=== PATIENT | male | born 1940 | race African-American/Black ===

== ENCOUNTER 2020-11-24 15:55 | Inpatient (IN) | payer MEDICARE, MEDICAID ==
[~2020-11-24] VITALS: Ht 185.4 cm; Wt 77.1 kg
[2020-11-24 17:08] VITALS: BP 137/54
[2020-11-24] MEDS ORDERED: MAGNESIUM/ALUMINUM HYDROXIDE/SIMETHICONE 30ML UDC PO PRN (18:30)
[2020-11-24] MEDS ORDERED: NA PHOS,M-B/NA PHOS,DI-BA ENEMA 118ML PR PRN (18:30)
[2020-11-24] MEDS ORDERED: NITROGLYCERIN 0.4MG TABLET SL SL PRN (18:30)
[2020-11-24] MEDS ORDERED: CLONIDINE 0.1MG TABLET PO PRN (18:30)
[2020-11-24] MEDS ORDERED: ONDANSETRON HCL 4MG TABLET PO PRN (18:39)
[2020-11-24 18:53] VITALS: BP 137/54
[2020-11-24 20:00] VITALS: BP 134/64
[2020-11-24] MEDS: ALBUTEROL (0.083%) 2.5MG/3ML NEB HHN SCH (21:10)
[2020-11-24] MEDS: DOCUSATE SODIUM 100MG CAPSULE PO SCH (21:15)
[2020-11-24] MEDS: ASCORBIC ACID 500 MG TABLET PO SCH (21:15)
[2020-11-24] MEDS: ATORVASTATIN CALCIUM 40MG TABLET PO SCH (21:15)
[2020-11-24] MEDS: FAMOTIDINE 20MG TABLET PO SCH (21:16)
[2020-11-24] MEDS: LISINOPRIL 20MG TABLET PO SCH (21:33)
[2020-11-24 21:55] LABS: BASOPHILS % 0.3 % (0.0-2.0); EOSINOPHILS % 1.4 % (0.0-5.0); HEMOGLOBIN. 10.3 g/dL (14.0-18.0); LYMPHOCYTES % 17.5 % (20.0-50.0); MEAN CORPUSCULAR HEMOGLOBIN 30.4 pg (28.0-32.0); MEAN CORPUSCULAR VOLUME 88.4 fL (80.0-94.0); MEAN PLATELET VOLUME 8.9 fl (7.4-10.4); MONOCYTES % 5.7 % (2.0-8.0); NEUTROPHILS % 75.1 % (40.0-76.0); PLATELET 264 x1000/uL (130-400); RED BLOOD CELL COUNT 3.39 mill/uL (4.7-6.1); RED CELL DISTRIBUTION WIDTH 13.7 % (11.6-14.6)
[2020-11-24 22:03] LABS: CHLORIDE 109 mEq/L (98-107); INR 1.1; PROTHROMBIN TIME 11.4 sec (9.6-11.0)
[2020-11-25] MEDS: HYDRALAZINE HCL 10MG TABLET PO SCH ×4 (00:46→17:39)
[2020-11-25] MEDS: METOCLOPRAMIDE HCL 10MG TABLET PO SCH ×4 (00:53→17:39)
[2020-11-25] MEDS: ALBUTEROL (0.083%) 2.5MG/3ML NEB HHN SCH ×4 (04:00→19:59)
[2020-11-25 06:45] LABS: BASOPHILS % 0.5 % (0.0-2.0); EOSINOPHILS % 3.3 % (0.0-5.0); HEMATOCRIT. 30.5 % (42.0-52.0); HEMOGLOBIN. 10.3 g/dL (14.0-18.0); LYMPHOCYTES % 18.8 % (20.0-50.0); MEAN CORPUSCULAR HEMOGLOBIN 30.2 pg (28.0-32.0); MEAN PLATELET VOLUME 9.2 fl (7.4-10.4); MONOCYTES % 6.8 % (2.0-8.0); NEUTROPHILS % 70.6 % (40.0-76.0); PLATELET 245 x1000/uL (130-400); RED BLOOD CELL COUNT 3.42 mill/uL (4.7-6.1); RED CELL DISTRIBUTION WIDTH 13.9 % (11.6-14.6)
[2020-11-25 06:54] LABS: CHLORIDE 110 mEq/L (98-107)
[2020-11-25 08:00] VITALS: BP 148/72
[2020-11-25] MEDS: ASPIRIN 81MG TABLET PO SCH (09:16)
[2020-11-25] MEDS: ASCORBIC ACID 500 MG TABLET PO SCH ×2 (09:16→22:10)
[2020-11-25] MEDS: DOCUSATE SODIUM 100MG CAPSULE PO SCH ×2 (09:16→17:38)
[2020-11-25] MEDS: AMLODIPINE 5MG TABLET PO SCH (09:17)
[2020-11-25] MEDS: CLOPIDOGREL 75MG TABLET PO SCH (09:17)
[2020-11-25] MEDS: LISINOPRIL 20MG TABLET PO SCH ×2 (09:17→22:10)
[2020-11-25] MEDS: FAMOTIDINE 20MG TABLET PO SCH ×2 (09:17→22:09)
[2020-11-25] MEDS: ZINC SULFATE 220 MG ( 50 ) CAPSULE PO SCH (09:17)
[2020-11-25] MEDS: ENOXAPARIN 40MG/0.4ML SYR SUBCUT SCH (09:18)
[2020-11-25 14:48] LABS: T4 FREE 1.12 ng/dL (0.76-1.46)
[2020-11-25] MEDS: NYSTATIN POWDER 15GM TOP SCH (17:45)
[2020-11-25 20:00] VITALS: BP 133/69
[2020-11-25] MEDS: ATORVASTATIN CALCIUM 40MG TABLET PO SCH (22:10)
[2020-11-26] MEDS: ALBUTEROL (0.083%) 2.5MG/3ML NEB HHN SCH ×5 (00:29→19:49)
[2020-11-26] MEDS: METOCLOPRAMIDE HCL 10MG TABLET PO SCH ×4 (01:12→17:09)
[2020-11-26] MEDS: HYDRALAZINE HCL 10MG TABLET PO SCH ×4 (01:13→17:09)
[2020-11-26 06:44] LABS: CHLORIDE 107 mEq/L (98-107)
[2020-11-26 06:51] LABS: TOTAL IRON BINDING CAPACITY 251 ug/dL (250-450)
[2020-11-26 06:54] LABS: BASOPHILS % 0.6 % (0.0-2.0); EOSINOPHILS % 2.6 % (0.0-5.0); HEMATOCRIT. 33.7 % (42.0-52.0); HEMOGLOBIN. 11.2 g/dL (14.0-18.0); LYMPHOCYTES % 19.3 % (20.0-50.0); MEAN CORPUSCULAR HEMOGLOBIN 30.1 pg (28.0-32.0); MEAN CORPUSCULAR VOLUME 90.1 fL (80.0-94.0); MEAN PLATELET VOLUME 8.8 fl (7.4-10.4); MONOCYTES % 7.4 % (2.0-8.0); NEUTROPHILS % 70.1 % (40.0-76.0); PLATELET 319 x1000/uL (130-400); RED BLOOD CELL COUNT 3.74 mill/uL (4.7-6.1); RED CELL DISTRIBUTION WIDTH 13.9 % (11.6-14.6)
[2020-11-26 07:04] LABS: PROSTRATE SPECIFIC AG TOTAL 1.97 ng/mL (0.0-4.0)
[2020-11-26 07:05] LABS: FOLIC ACID (FOLATE) SERUM 9.9 ng/mL (>5.38)
[2020-11-26 07:57] VITALS: BP 157/73
[2020-11-26] MEDS: CLOPIDOGREL 75MG TABLET PO SCH (10:03)
[2020-11-26] MEDS: LISINOPRIL 20MG TABLET PO SCH ×2 (10:03→21:35)
[2020-11-26] MEDS: ZINC SULFATE 220 MG ( 50 ) CAPSULE PO SCH (10:03)
[2020-11-26] MEDS: FAMOTIDINE 20MG TABLET PO SCH ×2 (10:04→21:35)
[2020-11-26] MEDS: ASPIRIN 81MG TABLET PO SCH (10:04)
[2020-11-26] MEDS: AMLODIPINE 5MG TABLET PO SCH (10:04)
[2020-11-26] MEDS: DOCUSATE SODIUM 100MG CAPSULE PO SCH ×2 (10:04→17:09)
[2020-11-26] MEDS: ENOXAPARIN 40MG/0.4ML SYR SUBCUT SCH (10:05)
[2020-11-26] MEDS: NYSTATIN POWDER 15GM TOP SCH ×3 (10:05→17:10)
[2020-11-26 12:21] VITALS: BP 139/71
[2020-11-26] MEDS: ASCORBIC ACID 500 MG TABLET PO SCH ×2 (12:25→21:35)
[2020-11-26] MEDS ORDERED: FERROUS SULFATE 325MG TABLET PO SCH (17:00)
[2020-11-26] MEDS: FERROUS SULFATE 325MG TABLET PO SCH (17:09)
[2020-11-26 20:00] VITALS: BP 132/72
[2020-11-26] MEDS: ACETAMINOPHEN 325MG TABLET PO PRN (21:35)
[2020-11-26] MEDS: ATORVASTATIN CALCIUM 40MG TABLET PO SCH (21:35)
[2020-11-27] MEDS: METOCLOPRAMIDE HCL 10MG TABLET PO SCH ×4 (01:10→18:02)
[2020-11-27] MEDS: HYDRALAZINE HCL 10MG TABLET PO SCH ×4 (01:10→18:02)
[2020-11-27 08:14] VITALS: BP 140/67
[2020-11-27] MEDS: ALBUTEROL (0.083%) 2.5MG/3ML NEB HHN SCH ×3 (08:15→21:00)
[2020-11-27] MEDS ORDERED: ASCORBIC ACID 500 MG TABLET PO SCH (09:00)
[2020-11-27] MEDS: ASCORBIC ACID 500 MG TABLET PEG SCH (09:43)
[2020-11-27] MEDS: FERROUS SULFATE 325MG TABLET PO SCH (09:43)
[2020-11-27] MEDS: FAMOTIDINE 20MG TABLET PO SCH ×2 (09:43→20:39)
[2020-11-27] MEDS: DOCUSATE SODIUM 100MG CAPSULE PO SCH ×2 (09:43→18:02)
[2020-11-27] MEDS: ASPIRIN 81MG TABLET PO SCH (09:43)
[2020-11-27] MEDS: ZINC SULFATE 220 MG ( 50 ) CAPSULE PO SCH (09:43)
[2020-11-27] MEDS: ENOXAPARIN 40MG/0.4ML SYR SUBCUT SCH (09:44)
[2020-11-27] MEDS: AMLODIPINE 5MG TABLET PO SCH (09:44)
[2020-11-27] MEDS: CLOPIDOGREL 75MG TABLET PO SCH (09:44)
[2020-11-27] MEDS: LISINOPRIL 20MG TABLET PO SCH ×2 (09:45→20:39)
[2020-11-27] MEDS: NYSTATIN POWDER 15GM TOP SCH ×3 (09:56→18:19)
[2020-11-27] MEDS: FERROUS SULFATE 300MG/5ML UDC PO SCH ×2 (15:32→18:02)
[2020-11-27 20:00] VITALS: BP 143/68
[2020-11-27] MEDS: ATORVASTATIN CALCIUM 40MG TABLET PO SCH (20:39)
[2020-11-28] MEDS: METOCLOPRAMIDE HCL 10MG TABLET PO SCH ×5 (01:27→23:37)
[2020-11-28] MEDS: HYDRALAZINE HCL 10MG TABLET PO SCH ×5 (01:27→23:37)
[2020-11-28] MEDS: ALBUTEROL (0.083%) 2.5MG/3ML NEB HHN SCH ×3 (08:17→21:16)
[2020-11-28 08:30] VITALS: BP 128/60
[2020-11-28] MEDS: FERROUS SULFATE 300MG/5ML UDC PO SCH ×3 (08:31→17:15)
[2020-11-28] MEDS: LISINOPRIL 20MG TABLET PO SCH ×2 (08:31→22:33)
[2020-11-28] MEDS: DOCUSATE SODIUM 100MG CAPSULE PO SCH ×2 (08:31→17:14)
[2020-11-28] MEDS: ASPIRIN 81MG TABLET PO SCH (08:31)
[2020-11-28] MEDS: AMLODIPINE 5MG TABLET PO SCH (08:31)
[2020-11-28] MEDS: ENOXAPARIN 40MG/0.4ML SYR SUBCUT SCH (08:32)
[2020-11-28] MEDS: CLOPIDOGREL 75MG TABLET PO SCH (08:32)
[2020-11-28] MEDS: ASCORBIC ACID 500 MG TABLET PEG SCH (08:32)
[2020-11-28] MEDS: FAMOTIDINE 20MG TABLET PO SCH ×2 (08:32→22:32)
[2020-11-28] MEDS: ZINC SULFATE 220 MG ( 50 ) CAPSULE PO SCH (08:32)
[2020-11-28] MEDS: NYSTATIN POWDER 15GM TOP SCH ×3 (08:44→17:14)
[2020-11-28] MEDS: ACETAMINOPHEN 325MG TABLET PO PRN (12:05)
[2020-11-28 20:00] VITALS: BP 152/77
[2020-11-28] MEDS: ATORVASTATIN CALCIUM 40MG TABLET PO SCH (22:33)
[2020-11-28] MEDS: GUAIFENESIN 200MG/10ML SUGAR FREE UDC PO PRN (23:37)
[2020-11-29] MEDS: ACETAMINOPHEN 650MG/20.3ML UDC PO PRN ×2 (02:28→23:42)
[2020-11-29] MEDS: METOCLOPRAMIDE HCL 10MG TABLET PO SCH ×4 (05:54→23:42)
[2020-11-29] MEDS: HYDRALAZINE HCL 10MG TABLET PO SCH ×4 (05:56→23:42)
[2020-11-29] MEDS: ALBUTEROL (0.083%) 2.5MG/3ML NEB HHN SCH ×4 (07:33→21:08)
[2020-11-29] MEDS: ENOXAPARIN 40MG/0.4ML SYR SUBCUT SCH (09:50)
[2020-11-29] MEDS: FERROUS SULFATE 300MG/5ML UDC PO SCH ×3 (09:50→17:39)
[2020-11-29] MEDS: AMLODIPINE 5MG TABLET PO SCH (09:51)
[2020-11-29] MEDS: DOCUSATE SODIUM 100MG CAPSULE PO SCH ×2 (09:51→17:40)
[2020-11-29] MEDS: ASPIRIN 81MG TABLET PO SCH (09:51)
[2020-11-29] MEDS: CLOPIDOGREL 75MG TABLET PO SCH (09:51)
[2020-11-29] MEDS: ZINC SULFATE 220 MG ( 50 ) CAPSULE PO SCH (09:51)
[2020-11-29] MEDS: LISINOPRIL 20MG TABLET PO SCH ×2 (09:51→22:01)
[2020-11-29] MEDS: ASCORBIC ACID 500 MG TABLET PEG SCH (09:51)
[2020-11-29] MEDS: NYSTATIN POWDER 15GM TOP SCH ×3 (09:52→17:40)
[2020-11-29] MEDS: FAMOTIDINE 20MG TABLET PO SCH ×2 (11:59→21:47)
[2020-11-29 20:00] VITALS: BP 130/71
[2020-11-29 21:10] LABS: PROTHROMBIN TIME 10.5 sec (9.6-11.0)
[2020-11-29] MEDS: ATORVASTATIN CALCIUM 40MG TABLET PO SCH (21:47)
[2020-11-30] MEDS: METOCLOPRAMIDE HCL 10MG TABLET PO SCH ×3 (05:24→18:02)
[2020-11-30] MEDS: HYDRALAZINE HCL 10MG TABLET PO SCH ×4 (05:27→23:56)
[2020-11-30 07:44] VITALS: BP 110/65
[2020-11-30] MEDS: ALBUTEROL (0.083%) 2.5MG/3ML NEB HHN SCH ×2 (09:21→19:55)
[2020-11-30] MEDS: ASPIRIN 81MG TABLET PO SCH (11:01)
[2020-11-30] MEDS: ASCORBIC ACID 500 MG TABLET PEG SCH (11:01)
[2020-11-30] MEDS: DOCUSATE SODIUM 100MG CAPSULE PO SCH ×2 (11:02→18:00)
[2020-11-30] MEDS: FERROUS SULFATE 300MG/5ML UDC PO SCH ×3 (11:03→18:01)
[2020-11-30] MEDS: AMLODIPINE 5MG TABLET PO SCH (11:04)
[2020-11-30] MEDS: ZINC SULFATE 220 MG ( 50 ) CAPSULE PO SCH (11:04)
[2020-11-30] MEDS: CLOPIDOGREL 75MG TABLET PO SCH (11:05)
[2020-11-30] MEDS: LISINOPRIL 20MG TABLET PO SCH ×2 (11:06→21:00)
[2020-11-30] MEDS: ENOXAPARIN 40MG/0.4ML SYR SUBCUT SCH (11:07)
[2020-11-30] MEDS: NYSTATIN POWDER 15GM TOP SCH ×3 (11:09→18:01)
[2020-11-30] MEDS: FAMOTIDINE 20MG TABLET PO SCH ×2 (11:15→21:46)
[2020-11-30 12:34] LABS: BASOPHILS % 0.8 % (0.0-2.0); EOSINOPHILS % 2.5 % (0.0-5.0); HEMATOCRIT. 29.5 % (42.0-52.0); HEMOGLOBIN. 9.9 g/dL (14.0-18.0); LYMPHOCYTES % 19.8 % (20.0-50.0); MEAN CORPUSCULAR HEMOGLOBIN 30.1 pg (28.0-32.0); MEAN CORPUSCULAR VOLUME 89.6 fL (80.0-94.0); MONOCYTES % 7.7 % (2.0-8.0); NEUTROPHILS % 69.2 % (40.0-76.0); PLATELET 373 x1000/uL (130-400); RED CELL DISTRIBUTION WIDTH 13.7 % (11.6-14.6)
[2020-11-30 20:00] VITALS: BP 116/59
[2020-11-30] MEDS: ACETAMINOPHEN 650MG/20.3ML UDC PO PRN (21:45)
[2020-11-30] MEDS: ATORVASTATIN CALCIUM 40MG TABLET PO SCH (21:45)
[2020-12-01] MEDS: METOCLOPRAMIDE HCL 10MG TABLET PO SCH ×4 (00:42→17:44)
[2020-12-01] MEDS: HYDRALAZINE HCL 10MG TABLET PO SCH ×4 (05:15→23:45)
[2020-12-01 05:21] LABS: BASOPHILS % 0.9 % (0.0-2.0); EOSINOPHILS % 2.6 % (0.0-5.0); HEMATOCRIT. 24.8 % (42.0-52.0); HEMOGLOBIN. 8.5 g/dL (14.0-18.0); LYMPHOCYTES % 21.7 % (20.0-50.0); MEAN CORPUSCULAR HEMOGLOBIN 30.6 pg (28.0-32.0); MEAN CORPUSCULAR VOLUME 89.8 fL (80.0-94.0); MEAN PLATELET VOLUME 8.3 fl (7.4-10.4); MONOCYTES % 6.4 % (2.0-8.0); NEUTROPHILS % 68.4 % (40.0-76.0); PLATELET 352 x1000/uL (130-400); RED BLOOD CELL COUNT 2.76 mill/uL (4.7-6.1); RED CELL DISTRIBUTION WIDTH 13.4 % (11.6-14.6)
[2020-12-01 08:43] VITALS: BP 136/63
[2020-12-01] MEDS: ALBUTEROL (0.083%) 2.5MG/3ML NEB HHN SCH ×3 (09:01→20:00)
[2020-12-01] MEDS: FAMOTIDINE 20MG TABLET PO SCH ×2 (09:29→21:37)
[2020-12-01] MEDS: ENOXAPARIN 40MG/0.4ML SYR SUBCUT SCH (09:29)
[2020-12-01] MEDS: DOCUSATE SODIUM 100MG CAPSULE PO SCH ×2 (09:29→17:44)
[2020-12-01] MEDS: FERROUS SULFATE 300MG/5ML UDC PO SCH ×3 (09:29→17:44)
[2020-12-01] MEDS: ASPIRIN 81MG TABLET PO SCH (09:30)
[2020-12-01] MEDS: ASCORBIC ACID 500 MG TABLET PEG SCH (09:30)
[2020-12-01] MEDS: AMLODIPINE 5MG TABLET PO SCH (09:30)
[2020-12-01] MEDS: ZINC SULFATE 220 MG ( 50 ) CAPSULE PO SCH (09:30)
[2020-12-01] MEDS: LISINOPRIL 20MG TABLET PO SCH ×2 (09:31→21:37)
[2020-12-01] MEDS: CLOPIDOGREL 75MG TABLET PO SCH (09:32)
[2020-12-01] MEDS: NYSTATIN POWDER 15GM TOP SCH ×3 (12:54→17:44)
[2020-12-01 20:00] VITALS: BP 136/69
[2020-12-01] MEDS: ACETAMINOPHEN 650MG/20.3ML UDC PO PRN (21:36)
[2020-12-01] MEDS: ATORVASTATIN CALCIUM 40MG TABLET PO SCH (21:37)
[2020-12-02] MEDS: METOCLOPRAMIDE HCL 10MG TABLET PO SCH ×4 (00:28→17:26)
[2020-12-02] MEDS: HYDRALAZINE HCL 10MG TABLET PO SCH ×3 (05:30→17:26)
[2020-12-02 06:57] LABS: BASOPHILS % 0.8 % (0.0-2.0); EOSINOPHILS % 2.5 % (0.0-5.0); HEMATOCRIT. 24.9 % (42.0-52.0); HEMOGLOBIN. 8.5 g/dL (14.0-18.0); LYMPHOCYTES % 20.4 % (20.0-50.0); MEAN CORPUSCULAR HEMOGLOBIN 30.3 pg (28.0-32.0); MEAN CORPUSCULAR VOLUME 88.7 fL (80.0-94.0); MEAN PLATELET VOLUME 8.9 fl (7.4-10.4); MONOCYTES % 8.5 % (2.0-8.0); NEUTROPHILS % 67.8 % (40.0-76.0); PLATELET 386 x1000/uL (130-400); RED BLOOD CELL COUNT 2.81 mill/uL (4.7-6.1); RED CELL DISTRIBUTION WIDTH 13.1 % (11.6-14.6)
[2020-12-02] MEDS: ALBUTEROL (0.083%) 2.5MG/3ML NEB HHN SCH ×3 (08:00→21:19)
[2020-12-02 08:05] VITALS: BP 116/68
[2020-12-02] MEDS: FERROUS SULFATE 300MG/5ML UDC PO SCH ×3 (08:52→17:25)
[2020-12-02] MEDS: ZINC SULFATE 220 MG ( 50 ) CAPSULE PO SCH (08:53)
[2020-12-02] MEDS: ENOXAPARIN 40MG/0.4ML SYR SUBCUT SCH (08:53)
[2020-12-02] MEDS: AMLODIPINE 5MG TABLET PO SCH (08:53)
[2020-12-02] MEDS: DOCUSATE SODIUM 100MG CAPSULE PO SCH ×2 (08:53→17:25)
[2020-12-02] MEDS: NYSTATIN POWDER 15GM TOP SCH ×3 (08:54→17:26)
[2020-12-02] MEDS: CLOPIDOGREL 75MG TABLET PO SCH (08:54)
[2020-12-02] MEDS: LISINOPRIL 20MG TABLET PO SCH ×2 (08:54→21:57)
[2020-12-02] MEDS: ASCORBIC ACID 500 MG TABLET PEG SCH (08:54)
[2020-12-02] MEDS: ASPIRIN 81MG TABLET PO SCH (08:54)
[2020-12-02] MEDS: FAMOTIDINE 20MG TABLET PO SCH ×2 (08:54→21:57)
[2020-12-02 20:00] VITALS: BP 138/61
[2020-12-02 21:53] LABS: CLARITY URINE CLEAR (CLEAR); COLOR URINE YELLOW (YELLOW); KETONES URINE NEGATIVE (NEGATIVE); LEUKOCYTE ESTERASE URINE NEGATIVE (NEGATIVE); NITRITE URINE NEGATIVE (NEGATIVE); OCCULT BLOOD URINE NEGATIVE (NEGATIVE); PROTEIN URINE NEGATIVE (NEGATIVE); SPECIFIC GRAVITY URINE 1.016 (1.005-1.030)
[2020-12-02] MEDS: ATORVASTATIN CALCIUM 40MG TABLET PO SCH (21:57)
[2020-12-02] MEDS: ACETAMINOPHEN 650MG/20.3ML UDC PO PRN (22:02)
[2020-12-03] MEDS: METOCLOPRAMIDE HCL 10MG TABLET PO SCH ×4 (00:19→17:10)
[2020-12-03] MEDS: HYDRALAZINE HCL 10MG TABLET PO SCH ×4 (00:19→17:13)
[2020-12-03] MEDS: ALBUTEROL (0.083%) 2.5MG/3ML NEB HHN SCH ×3 (07:13→20:19)
[2020-12-03 07:51] VITALS: BP 132/61
[2020-12-03] MEDS: BISACODYL 5MG TABLET PO PRN (08:17)
[2020-12-03] MEDS: DOCUSATE SODIUM 100MG CAPSULE PO SCH ×2 (08:17→17:10)
[2020-12-03] MEDS: CLOPIDOGREL 75MG TABLET PO SCH (08:17)
[2020-12-03] MEDS: ASPIRIN 81MG TABLET PO SCH (08:17)
[2020-12-03] MEDS: FERROUS SULFATE 300MG/5ML UDC PO SCH ×2 (08:17→12:09)
[2020-12-03] MEDS: ZINC SULFATE 220 MG ( 50 ) CAPSULE PO SCH (08:17)
[2020-12-03] MEDS: FAMOTIDINE 20MG TABLET PO SCH ×2 (08:17→21:41)
[2020-12-03] MEDS: AMLODIPINE 5MG TABLET PO SCH (08:18)
[2020-12-03] MEDS: LISINOPRIL 20MG TABLET PO SCH ×2 (08:18→21:42)
[2020-12-03] MEDS: ASCORBIC ACID 500 MG TABLET PEG SCH (08:18)
[2020-12-03] MEDS: ENOXAPARIN 40MG/0.4ML SYR SUBCUT SCH (08:19)
[2020-12-03] MEDS: NYSTATIN POWDER 15GM TOP SCH ×3 (08:39→17:00)
[2020-12-03 10:19] LABS: BASOPHILS % 0.7 % (0.0-2.0); EOSINOPHILS % 2.2 % (0.0-5.0); HEMATOCRIT. 24.4 % (42.0-52.0); HEMOGLOBIN. 8.1 g/dL (14.0-18.0); LYMPHOCYTES % 20.3 % (20.0-50.0); MEAN CORPUSCULAR HEMOGLOBIN 30.1 pg (28.0-32.0); MEAN PLATELET VOLUME 8.9 fl (7.4-10.4); MONOCYTES % 10.3 % (2.0-8.0); NEUTROPHILS % 66.5 % (40.0-76.0); PLATELET 396 x1000/uL (130-400); RED BLOOD CELL COUNT 2.71 mill/uL (4.7-6.1); RED CELL DISTRIBUTION WIDTH 13.4 % (11.6-14.6)
[2020-12-03] MEDS ORDERED: IRON SUCROSE COMPLEX 100 MG in SODIUM CHLORIDE 0.9% 100 ML IV SCH (15:00)
[2020-12-03] MEDS: SERTRALINE HCL 25MG TABLET PO SCH (17:11)
[2020-12-03 20:00] VITALS: BP 156/65
[2020-12-03] MEDS: ATORVASTATIN CALCIUM 40MG TABLET PO SCH (21:41)
[2020-12-03] MEDS: IRON SUCROSE COMPLEX 100 MG in SODIUM CHLORIDE 0.9% 100 ML IV SCH (21:55)
[2020-12-04] MEDS: METOCLOPRAMIDE HCL 10MG TABLET PO SCH ×4 (00:06→17:24)
[2020-12-04] MEDS: HYDRALAZINE HCL 10MG TABLET PO SCH ×4 (00:07→17:24)
[2020-12-04] MEDS: ZINC SULFATE 220 MG ( 50 ) CAPSULE PO SCH (08:09)
[2020-12-04] MEDS: AMLODIPINE 5MG TABLET PO SCH (08:09)
[2020-12-04] MEDS: ASPIRIN 81MG TABLET PO SCH (08:10)
[2020-12-04] MEDS: ASCORBIC ACID 500 MG TABLET PEG SCH (08:10)
[2020-12-04] MEDS: ENOXAPARIN 40MG/0.4ML SYR SUBCUT SCH (08:10)
[2020-12-04] MEDS: CLOPIDOGREL 75MG TABLET PO SCH (08:10)
[2020-12-04] MEDS: FAMOTIDINE 20MG TABLET PO SCH ×2 (08:10→21:30)
[2020-12-04] MEDS: SERTRALINE HCL 25MG TABLET PO SCH (08:10)
[2020-12-04] MEDS: DOCUSATE SODIUM 100MG CAPSULE PO SCH ×2 (08:10→17:23)
[2020-12-04] MEDS: LISINOPRIL 20MG TABLET PO SCH ×2 (08:10→21:30)
[2020-12-04] MEDS: NYSTATIN POWDER 15GM TOP SCH ×2 (08:11→17:24)
[2020-12-04 08:30] VITALS: BP 128/62
[2020-12-04] MEDS: ALBUTEROL (0.083%) 2.5MG/3ML NEB HHN SCH ×3 (09:49→20:30)
[2020-12-04] MEDS: ACETAMINOPHEN 650MG/20.3ML UDC PO PRN ×2 (11:56→18:54)
[2020-12-04] MEDS: AZITHROMYCIN 500 MG TABLET PO SCH (11:56)
[2020-12-04 15:10] LABS: 25-HYDROXY VITAMIN D3 29 ng/mL (.)
[2020-12-04] MEDS: IRON SUCROSE COMPLEX 100 MG in SODIUM CHLORIDE 0.9% 100 ML IV SCH (19:00)
[2020-12-04 20:00] VITALS: BP 108/45
[2020-12-04] MEDS: ATORVASTATIN CALCIUM 40MG TABLET PO SCH (21:30)
[2020-12-04] MEDS: GUAIFENESIN 200MG/10ML SUGAR FREE UDC PO PRN (22:18)
[2020-12-05] MEDS: METOCLOPRAMIDE HCL 10MG TABLET PO SCH ×4 (01:29→17:19)
[2020-12-05] MEDS: HYDRALAZINE HCL 10MG TABLET PO SCH ×4 (01:30→17:23)
[2020-12-05 07:46] VITALS: BP 115/56
[2020-12-05] MEDS: ALBUTEROL (0.083%) 2.5MG/3ML NEB HHN SCH ×3 (07:48→21:00)
[2020-12-05] MEDS: NYSTATIN POWDER 15GM TOP SCH ×3 (09:00→17:21)
[2020-12-05] MEDS: CLOPIDOGREL 75MG TABLET PO SCH (09:05)
[2020-12-05] MEDS: LISINOPRIL 20MG TABLET PO SCH ×2 (09:05→20:59)
[2020-12-05] MEDS: SERTRALINE HCL 25MG TABLET PO SCH (09:05)
[2020-12-05] MEDS: ASCORBIC ACID 500 MG TABLET PEG SCH (09:06)
[2020-12-05] MEDS: AMLODIPINE 5MG TABLET PO SCH (09:06)
[2020-12-05] MEDS: FAMOTIDINE 20MG TABLET PO SCH ×2 (09:09→20:59)
[2020-12-05] MEDS: DOCUSATE SODIUM 100MG CAPSULE PO SCH ×2 (09:09→17:19)
[2020-12-05] MEDS: ASPIRIN 81MG TABLET PO SCH (09:09)
[2020-12-05] MEDS: ENOXAPARIN 40MG/0.4ML SYR SUBCUT SCH (09:09)
[2020-12-05] MEDS: ZINC SULFATE 220 MG ( 50 ) CAPSULE PO SCH (09:09)
[2020-12-05] MEDS: AZITHROMYCIN 500 MG TABLET PO SCH (12:29)
[2020-12-05] MEDS: BISACODYL 5MG TABLET PO PRN (12:30)
[2020-12-05] MEDS: ACETAMINOPHEN 650MG/20.3ML UDC PO PRN ×2 (14:07→18:54)
[2020-12-05] MEDS ORDERED: ERGOCALCIFEROL 50000UNITS CAPSULE PO SCH (18:00)
[2020-12-05] MEDS: ATORVASTATIN CALCIUM 40MG TABLET PO SCH (20:59)
[2020-12-05 21:09] VITALS: BP 140/65
[2020-12-06] MEDS: HYDRALAZINE HCL 10MG TABLET PO SCH ×4 (00:11→17:21)
[2020-12-06] MEDS: METOCLOPRAMIDE HCL 10MG TABLET PO SCH ×4 (00:11→17:20)
[2020-12-06] MEDS: ALBUTEROL (0.083%) 2.5MG/3ML NEB HHN SCH ×4 (00:56→21:45)
[2020-12-06] MEDS: ACETAMINOPHEN 650MG/20.3ML UDC PO PRN (02:36)
[2020-12-06 07:34] VITALS: BP 135/58
[2020-12-06 07:59] LABS: EOSINOPHILS % 2.4 % (0.0-5.0); HEMATOCRIT. 21.6 % (42.0-52.0); HEMOGLOBIN. 7.1 g/dL (14.0-18.0); LYMPHOCYTES % 22.3 % (20.0-50.0); MEAN CORPUSCULAR HEMOGLOBIN 29.9 pg (28.0-32.0); MEAN CORPUSCULAR VOLUME 91.3 fL (80.0-94.0); MEAN PLATELET VOLUME 8.6 fl (7.4-10.4); MONOCYTES % 8.3 % (2.0-8.0); PLATELET 369 x1000/uL (130-400); RED BLOOD CELL COUNT 2.36 mill/uL (4.7-6.1); RED CELL DISTRIBUTION WIDTH 13.9 % (11.6-14.6)
[2020-12-06 08:04] LABS: CHLORIDE 107 mEq/L (98-107)
[2020-12-06] MEDS ORDERED: NA PHOS,M-B/NA PHOS,DI-BA ENEMA 118ML PR PRN (08:15)
[2020-12-06] MEDS: NYSTATIN POWDER 15GM TOP SCH ×3 (09:00→17:36)
[2020-12-06] MEDS: ENOXAPARIN 40MG/0.4ML SYR SUBCUT SCH (09:00)
[2020-12-06] MEDS: CLOPIDOGREL 75MG TABLET PO SCH (09:27)
[2020-12-06] MEDS: ASPIRIN 81MG TABLET PO SCH (09:28)
[2020-12-06] MEDS: AMLODIPINE 5MG TABLET PO SCH (09:28)
[2020-12-06] MEDS: ASCORBIC ACID 500 MG TABLET PEG SCH (09:28)
[2020-12-06] MEDS: ZINC SULFATE 220 MG ( 50 ) CAPSULE PO SCH (09:28)
[2020-12-06] MEDS: SERTRALINE HCL 25MG TABLET PO SCH (09:28)
[2020-12-06] MEDS: LISINOPRIL 20MG TABLET PO SCH ×2 (09:28→22:00)
[2020-12-06] MEDS: DOCUSATE SODIUM 100MG CAPSULE PO SCH ×2 (09:28→17:20)
[2020-12-06] MEDS: FAMOTIDINE 20MG TABLET PO SCH ×2 (09:28→21:59)
[2020-12-06 10:05] VITALS: BP 108/64
[2020-12-06] MEDS: AZITHROMYCIN 500 MG TABLET PO SCH (11:52)
[2020-12-06] MEDS ORDERED: LACTULOSE 20G/30ML UDC PO SCH (12:00)
[2020-12-06 20:00] VITALS: BP 122/64
[2020-12-06] MEDS: ATORVASTATIN CALCIUM 40MG TABLET PO SCH (21:59)
[2020-12-07] VITALS (7 sets, daily range): BP systolic 117–162; BP diastolic 55–76
[2020-12-07] MEDS: METOCLOPRAMIDE HCL 10MG TABLET PO SCH ×5 (00:31→23:45)
[2020-12-07] MEDS: HYDRALAZINE HCL 10MG TABLET PO SCH ×5 (00:31→23:47)
[2020-12-07] MEDS: ALBUTEROL (0.083%) 2.5MG/3ML NEB HHN SCH ×3 (08:04→20:53)
[2020-12-07] MEDS: BISACODYL 5MG TABLET PO PRN (10:13)
[2020-12-07] MEDS: SERTRALINE HCL 25MG TABLET PO SCH (10:13)
[2020-12-07] MEDS: ENOXAPARIN 40MG/0.4ML SYR SUBCUT SCH (10:13)
[2020-12-07] MEDS: ZINC SULFATE 220 MG ( 50 ) CAPSULE PO SCH (10:13)
[2020-12-07] MEDS: DOCUSATE SODIUM 100MG CAPSULE PO SCH ×2 (10:13→17:25)
[2020-12-07] MEDS: AMLODIPINE 5MG TABLET PO SCH (10:13)
[2020-12-07] MEDS: CLOPIDOGREL 75MG TABLET PO SCH (10:13)
[2020-12-07] MEDS: ASPIRIN 81MG TABLET PO SCH (10:13)
[2020-12-07] MEDS: FAMOTIDINE 20MG TABLET PO SCH ×2 (10:14→21:28)
[2020-12-07] MEDS: ASCORBIC ACID 500 MG TABLET PEG SCH (10:14)
[2020-12-07] MEDS: LISINOPRIL 20MG TABLET PO SCH ×2 (10:14→21:28)
[2020-12-07] MEDS: NYSTATIN POWDER 15GM TOP SCH ×3 (10:15→17:40)
[2020-12-07] MEDS: AZITHROMYCIN 500 MG TABLET PO SCH (11:46)
[2020-12-07 16:15] LABS: HEMATOCRIT 21.6 % (42.0-52.0); HEMOGLOBIN 7.1 g/dL (14.0-18.0)
[2020-12-07] MEDS: ATORVASTATIN CALCIUM 40MG TABLET PO SCH (21:28)
[2020-12-08 00:07] VITALS: BP 152/72
[2020-12-08] MEDS: HYDRALAZINE HCL 10MG TABLET PO SCH ×3 (05:43→17:27)
[2020-12-08] MEDS: METOCLOPRAMIDE HCL 10MG TABLET PO SCH ×3 (05:44→17:27)
[2020-12-08 06:43] LABS: BASOPHILS % 0.6 % (0.0-2.0); EOSINOPHILS % 1.8 % (0.0-5.0); HEMATOCRIT. 25.4 % (42.0-52.0); HEMOGLOBIN. 8.5 g/dL (14.0-18.0); LYMPHOCYTES % 15.1 % (20.0-50.0); MEAN CORPUSCULAR HEMOGLOBIN 29.7 pg (28.0-32.0); MEAN CORPUSCULAR VOLUME 89.3 fL (80.0-94.0); MEAN PLATELET VOLUME 8.5 fl (7.4-10.4); MONOCYTES % 7.5 % (2.0-8.0); PLATELET 363 x1000/uL (130-400); RED BLOOD CELL COUNT 2.85 mill/uL (4.7-6.1); RED CELL DISTRIBUTION WIDTH 14.2 % (11.6-14.6)
[2020-12-08 06:50] LABS: CHLORIDE 107 mEq/L (98-107)
[2020-12-08 08:00] VITALS: BP 135/63
[2020-12-08] MEDS: ALBUTEROL (0.083%) 2.5MG/3ML NEB HHN SCH ×2 (09:48→14:50)
[2020-12-08] MEDS: ASCORBIC ACID 500 MG TABLET PEG SCH (10:04)
[2020-12-08] MEDS: LISINOPRIL 20MG TABLET PO SCH ×2 (10:04→20:38)
[2020-12-08] MEDS: ASPIRIN 81MG TABLET PO SCH (10:04)
[2020-12-08] MEDS: FAMOTIDINE 20MG TABLET PO SCH ×2 (10:04→20:37)
[2020-12-08] MEDS: AMLODIPINE 5MG TABLET PO SCH (10:04)
[2020-12-08] MEDS: ZINC SULFATE 220 MG ( 50 ) CAPSULE PO SCH (10:04)
[2020-12-08] MEDS: SERTRALINE HCL 25MG TABLET PO SCH (10:04)
[2020-12-08] MEDS: DOCUSATE SODIUM 100MG CAPSULE PO SCH ×2 (10:04→17:27)
[2020-12-08] MEDS: CLOPIDOGREL 75MG TABLET PO SCH (10:05)
[2020-12-08] MEDS: NYSTATIN POWDER 15GM TOP SCH ×3 (10:06→17:27)
[2020-12-08] MEDS: AZITHROMYCIN 500 MG TABLET PO SCH (10:08)
[2020-12-08] MEDS: ENOXAPARIN 40MG/0.4ML SYR SUBCUT SCH (10:09)
[2020-12-08 17:18] VITALS: BP 130/67
[2020-12-08] MEDS: ATORVASTATIN CALCIUM 40MG TABLET PO SCH (20:37)
[2020-12-09] MEDS: HYDRALAZINE HCL 10MG TABLET PO SCH ×4 (00:38→17:40)
[2020-12-09] MEDS: METOCLOPRAMIDE HCL 10MG TABLET PO SCH ×4 (00:38→17:40)
[2020-12-09] MEDS: ALBUTEROL (0.083%) 2.5MG/3ML NEB HHN SCH ×2 (07:23→18:00)
[2020-12-09] MEDS: CLOPIDOGREL 75MG TABLET PO SCH (08:23)
[2020-12-09] MEDS: ASPIRIN 81MG TABLET PO SCH (08:23)
[2020-12-09] MEDS: ZINC SULFATE 220 MG ( 50 ) CAPSULE PO SCH (08:23)
[2020-12-09] MEDS: DOCUSATE SODIUM 100MG CAPSULE PO SCH ×2 (08:23→17:40)
[2020-12-09] MEDS: ENOXAPARIN 40MG/0.4ML SYR SUBCUT SCH (08:23)
[2020-12-09] MEDS: FAMOTIDINE 20MG TABLET PO SCH ×2 (08:23→22:11)
[2020-12-09] MEDS: ASCORBIC ACID 500 MG TABLET PEG SCH (08:23)
[2020-12-09] MEDS: NYSTATIN POWDER 15GM TOP SCH ×3 (08:23→17:39)
[2020-12-09] MEDS: SERTRALINE HCL 25MG TABLET PO SCH (08:23)
[2020-12-09] MEDS: AMLODIPINE 5MG TABLET PO SCH (08:26)
[2020-12-09] MEDS: LISINOPRIL 20MG TABLET PO SCH ×2 (08:26→22:11)
[2020-12-09 08:27] VITALS: BP 121/55
[2020-12-09] MEDS: AZITHROMYCIN 500 MG TABLET PO SCH (12:17)
[2020-12-09 20:00] VITALS: BP 123/65
[2020-12-09] MEDS: ATORVASTATIN CALCIUM 40MG TABLET PO SCH (22:11)
[2020-12-10] MEDS: METOCLOPRAMIDE HCL 10MG TABLET PO SCH ×3 (00:18→13:01)
[2020-12-10] MEDS: HYDRALAZINE HCL 10MG TABLET PO SCH ×3 (00:23→13:01)
[2020-12-10] MEDS: ALBUTEROL (0.083%) 2.5MG/3ML NEB HHN SCH ×3 (02:34→13:10)
[2020-12-10 07:49] VITALS: BP 121/65
[2020-12-10] MEDS: ENOXAPARIN 40MG/0.4ML SYR SUBCUT SCH (08:46)
[2020-12-10] MEDS: ASCORBIC ACID 500 MG TABLET PEG SCH (08:46)
[2020-12-10] MEDS: FAMOTIDINE 20MG TABLET PO SCH (08:46)
[2020-12-10] MEDS: AMLODIPINE 5MG TABLET PO SCH (08:46)
[2020-12-10] MEDS: LISINOPRIL 20MG TABLET PO SCH (08:47)
[2020-12-10] MEDS: SERTRALINE HCL 25MG TABLET PO SCH (08:47)
[2020-12-10] MEDS: CLOPIDOGREL 75MG TABLET PO SCH (08:47)
[2020-12-10] MEDS: ASPIRIN 81MG TABLET PO SCH (08:47)
[2020-12-10] MEDS: ZINC SULFATE 220 MG ( 50 ) CAPSULE PO SCH (08:47)
[2020-12-10] MEDS: NYSTATIN POWDER 15GM TOP SCH ×2 (08:47→13:01)
[2020-12-10] MEDS: DOCUSATE SODIUM 100MG CAPSULE PO SCH (08:47)
[2020-12-10 09:06] LABS: BASOPHILS % 0.6 % (0.0-2.0); EOSINOPHILS % 1.7 % (0.0-5.0); HEMATOCRIT. 23.4 % (42.0-52.0); HEMOGLOBIN. 8.1 g/dL (14.0-18.0); LYMPHOCYTES % 14.3 % (20.0-50.0); MEAN CORPUSCULAR HEMOGLOBIN 31.5 pg (28.0-32.0); MEAN PLATELET VOLUME 8.8 fl (7.4-10.4); MONOCYTES % 7.2 % (2.0-8.0); NEUTROPHILS % 76.2 % (40.0-76.0); PLATELET 380 x1000/uL (130-400); RED BLOOD CELL COUNT 2.57 mill/uL (4.7-6.1); RED CELL DISTRIBUTION WIDTH 14.7 % (11.6-14.6)
[2020-12-10 09:17] LABS: CHLORIDE 106 mEq/L (98-107)
[2020-12-10 13:23] VITALS: BP 127/73
== END 2020-12-10 16:50 | DRG 56 ==
PROVIDERS: ADMIT Physical Medicine & Rehabilitation Spinal Cord Injury Medicine; ATTEND Internal Medicine
DX: I69.351 Hemiplegia and hemiparesis following cerebral infarction affecting right dominant side (principal); I63.9 Cerebral infarction, unspecified; G82.50 Quadriplegia, unspecified; M62.82 Rhabdomyolysis; N13.8 Other obstructive and reflux uropathy; E44.0 Moderate protein-calorie malnutrition; J44.9 Chronic obstructive pulmonary disease, unspecified; K21.9 Gastro-esophageal reflux disease without esophagitis; I11.9 Hypertensive heart disease without heart failure; G89.4 Chronic pain syndrome; F39 Unspecified mood [affective] disorder; M48.02 Spinal stenosis, cervical region; N40.1 Benign prostatic hyperplasia with lower urinary tract symptoms; Z93.1 Gastrostomy status; Z87.891 Personal history of nicotine dependence; E83.51 Hypocalcemia; E78.5 Hyperlipidemia, unspecified; E78.00 Pure hypercholesterolemia, unspecified; D50.9 Iron deficiency anemia, unspecified; E03.9 Hypothyroidism, unspecified; E11.9 Type 2 diabetes mellitus without complications; B19.20 Unspecified viral hepatitis C without hepatic coma; E86.0 Dehydration
CPT/HCPCS: 36415; 71045; 80048; 80053; 81003; 82140; 82306; 82728; 82746; 83540; 83550; 84134; 84153; 84439; 84443; 84481; 85014; 85018; 85025; 86850; 86900; 86920; 92523; 92610; 93970; 94640; 97110; 97112; 97116; 97162; 97166; 97530; 97535; A6261; J1650; J7050; J7070; J8597; P9016; U0003; U0005; G0103